=== PATIENT | female | born 1955 | race Two or more races ===

== ENCOUNTER 2024-12-02 21:35 | Emergency (ER) | payer MEDICARE, MEDICAID, SELFPAY ==
[2024-12-02 21:37] VITALS: BMI 35.2
--- NOTE | 2024-12-02 21:53 | PC.NURSE ---
pt was called to go back to take vitals and see provider. Pt stated they wanted to leave and not be seen. I advised they were getting taken back to see a provider but pt still wanted to leave before vitals and initial triage.
== END 2024-12-02 21:52 | disposition left against medical advice (07) ==
LOC: SERX 22:56
PROVIDERS: Emergency Provider Emergency Medicine
DX: Z53.21 Procedure and treatment not carried out due to patient leaving prior to being seen by health care provider (principal)

== ENCOUNTER → 2025-02-10 | Outpatient (CLI) | payer OTHER, SELFPAY | END | disposition home or self-care (01) | LOC: SWHD 09:11 | PROVIDERS: PCP Student in an Organized Health Care Education/Training Program; Referring Provider Student in an Organized Health Care Education/Training Program; Visit Provider Student in an Organized Health Care Education/Training Program | DX: L02.414 Cutaneous abscess of left upper limb (principal); R60.0 Localized edema; I10 Essential (primary) hypertension; E11.69 Type 2 diabetes mellitus with other specified complication; Z79.84 Long term (current) use of oral hypoglycemic drugs | CPT/HCPCS: 99213; A9270; G0463 ==